=== PATIENT | male | born 1990 | race Two or more races ===

== ENCOUNTER 2019-03-27 12:24 | Emergency (ER) | payer MEDICAID, OTHER ==
[~2019-03-27] VITALS: Ht 190.5 cm; Wt 74.8 kg
[2019-03-27 12:40] VITALS: BP 129/92
[2019-03-27] MEDS ORDERED: LIDOCAINE 1% HCL (LOCAL ANESTH.) INJ 20ML MDV IJ ONE (13:00)
[2019-03-27] MEDS ORDERED: cefTRIAXone SOD 1,000 MG VL IM ONE (13:45)
[2019-03-27] MEDS ORDERED: BACITRACIN TOP OINT 1 UD PKG TOP ONE (14:15)
== END 2019-03-27 14:06 | disposition home or self-care (01) ==
LOC: ER 12:26
DX: S02.2XXB Fracture of nasal bones, initial encounter for open fracture (principal); W20.8XXA Other cause of strike by thrown, projected or falling object, initial encounter; Y93.89 Activity, other specified; Y99.8 Other external cause status; Y92.89 Other specified places as the place of occurrence of the external cause
CPT/HCPCS: 12013; 70160; 96372; 99284; J0696; J2001